=== PATIENT | male | born 1960 | race Caucasian/White ===

== ENCOUNTER 2016-09-26 21:56 | Emergency (ER) | payer SELFPAY ==
[2016-09-26] MEDS ORDERED: BENADRYL INJ 50 MG VIAL ONE (22:05)
[2016-09-26] MEDS ORDERED: SOLU-Medrol 125 MG VIAL ONE ×2 (22:09→23:03)
[2016-09-26] MEDS ORDERED: BENADRYL INJ 50 MG VIAL IV ONE (22:10)
[2016-09-26] MEDS ORDERED: SOLU-Medrol 125 MG VIAL IVP ONE ×2 (22:10→22:55)
[2016-09-26] MEDS ORDERED: ADRENALINE CHL INJ IM ONE ×2 (22:10→22:55)
[2016-09-26] MEDS ORDERED: ADRENALINE CHL INJ ONE ×2 (22:10→22:55)
--- NOTE | 2016-09-26 22:12 | DR.GENAD ---
HPI - HPI Comment HPI Comment: GETTING WORSE, CAME TO ED. NO MED TAKING BEFORE COMING. - Complaint/Symptoms Chief Complaint Doctors Comments: ALLERGIC REACTION TO BEE STING. GENERALIZE PRURITUS, THROAT DISCOMFORT AND CHEST TIGHTNESS WITH RASH. NOTED AT 20:30 PM TONIGHT. - Nurses notes reviewed Nurses Notes Review: Yes - Source History Provided: Patient - Mode of Arrival Mode of Arrival: Ambulatory - Timing Came on: Suddenly - Duration Duration: Constant Duration: Hours - Severity Severity: Moderate PMH - PMH Past Medical History: Arthritis Past Surgical History: Yes Surgical History: Ortho Surgery - Family History Family Medical History: Diabetes Mellitus, Cancer, [place], Coronary Artery Disease, Heart Failure, Sudden Cardiac , Hypertension - Social History Do you use any recreational Drugs:: No ROS - Review of Systems Constitutional: No Symptoms Reported Eyes: No Symptoms Reported ENTM: Throat Pain. negative: Ear Pain, Nose Discharge, Nose Congestion Respiratoy: Non-Productive Cough, Short of Breath, Wheezing. negative: Hemoptysis Cardiovascular: Chest Pain. negative: Edema, Palpitations, Syncope Gastrointestinal/Abdominal: Nausea. negative: Abdominal Pain Genitourinary: No Symptoms Reported Neurological: No Symptoms Reported Musculoskeletal: Muscle Pain Integumentary: No Symptoms Reported Hematologic/Lymphatic: No Symptoms Reported Endocrine: No Symptoms Reported All Other Systems: Reviewed and Negative PE - Vital Signs Vitals: Temperature 98.2 F Pulse Rate [Apical] 96 Pulse Rate 105 Respiratory Rate 20 Blood Pressure [Right Arm] 107/62 Blood Pressure 85/61 O2 Sat by Pulse Oximetry 99 - General Limitations: No Limitations General Appearance: Alert - Head Head Exam: Normal Inspection - Eyes Eye exam: Normal Appearance - ENT ENT Exam: Normal External Ear Exam External Ear Exam: Normal External Inspection TM/Canal Exam: Bilateral Normal Nose Exam: Normal Nose Exam Mouth Exam: Normal Inspection Throat Exam: Normal Inspection - Neck Neck Exam: Normal Inspection - Chest Chest Inspection: Symmetric Chest Wall Rise - Respiratory Respiratory Exam: Normal Lung Sounds Bilat Respiratory Exam: Bilateral Clear to Auscultation - Cardiovascular Cardiovascular Exam: Regular Rate, Normal Rhythm, Normal Heart Sounds - Abdominal Exam Abdominal Exam: Normal Bowel Sounds, Soft, Hyperactive Bowel Sounds. negative: Tenderness - Extremities Extremities Exam: Normal Inspection - Back Back Exam: Normal Inspection - Neurologic Neurological Exam: Alert, Oriented X3 - Psychiatric Psychiatric Exam: Normal Affect, Normal Mood - Skin Skin Exam: Normal Color MDM - Additional Information Additional Information Obtained From: Family - Differential Diagnosis Differential Diagnosis: ALLEGIC REACTION, PRURITUS, BEE STING Course - Treatment Treatment: SEE ORDERS. MEDS IN ED. - Reevaluation 1st: Improved - Education/Counseling Education/Counseling: Patient, Family, Education Educated On: Treatment, Diagnosis, Needs for Follow Up - Diagnosis Discharge Problem: Allergic reaction to bee sting Anaphylactoid reaction Qualifiers: Encounter type: initial encounter Qualified Code(s): T78.2XXA - Anaphylactic shock, unspecified, initial encounter - Discharge Plan Disposition: HOME, SELF-CARE Condition: Stable Prescriptions: Hydroxyzine Pamoate [Vistaril] 25 mg PO QID #20 cap Methylprednisolone Dosepak 4Mg [MEDROL DOSEPAK (4 mg tab x 21)] 1 thalia PO ONCE # 1 thalia - Follow ups/Referrals Follow ups/Referrals: NFD,None [Primary Care Provider] - 2 days JUAN ROBERTO [STAFF PHYSICIAN] - 2 days - Instructions Instructions: Angioedema, [id number], Allergies, [id number], Anaphylactic Reaction, [id number], Insect Bite, Bee, Wasp, or Hornet Sting Additional Instructions: RETURN TO ED IF WORSE.
[2016-09-26] MEDS ORDERED: NS 1000 ML 1,000 ML IV ONE (22:13)
[2016-09-26] MEDS ORDERED: NS 1000 ML 1,000 ML ONE (22:15)
[2016-09-26 22:20] VITALS: BMI 22.4
[2016-09-26] MEDS ORDERED: PEPCID 20 MG IV PREMIX* 20 MG/50 ML BAG IV ONE ×2 (22:55)
[2016-09-26 23:50] VITALS: BP 107/62
== END 2016-09-27 00:50 | disposition home or self-care (01) ==
LOC: ER 22:02
DX: T78.2XXA Anaphylactic shock, unspecified, initial encounter (principal); W57.XXXA Bitten or stung by nonvenomous insect and other nonvenomous arthropods, initial encounter
CPT/HCPCS: 96365; 96372; 96374; 96375; 99283; 99284; A4222; S0028; J0170; J1200; J2930

== ENCOUNTER 2016-11-03 22:33 | Emergency (ER) | payer SELFPAY ==
[2016-11-03 22:37] VITALS: BP 141/88; BMI 22.0
--- NOTE | 2016-11-03 23:37 | RAD ---
EXAM: Right wrist x-ray INDICATION: Pain COMPARISION: No priors for comparison TECHNIQUE: AP, lateral, and oblique, three views FINDINGS: No acute fracture or dislocation. The joint spaces are preserved. The soft tissues are normal. No ra diopaque foreign body. IMPRESSION: Normal right wrist x-ray exam Reported By:
[2016-11-04] MEDS ORDERED: TORADOL 60 MG VIAL IM ONE (00:02)
[2016-11-04] MEDS ORDERED: TORADOL 30 MG VIAL ONE (00:06)
--- NOTE | 2016-11-04 00:09 | DR.EXTPAIN ---
HPI - Time seen Time seen: 00:04 - PCP Primary Care Physician: nfd - Complaint/Symptoms Chief Complaint Doctor Comments: Patient states hurt his right wrist a week ago when he was tring to fix a catch and it slipped and he hurt his right wrist and yesterday he was trying to take an air conditioning unit out of a window and it go stuck and he tried to knock it out using his right hand and hurt his wrist again. States he can barely move his fingers due to the pain. He has been wearing a splint on the right writst but it has not been helping with the pain tonight. states the pain is 9 of 10 worst when he moves his wrist. He denies chest pain or head trauma. states he is a patient of Dr Vazquez. Chief Complaint:: "i hurt my right wrist last saturday a week ago, yesterday i reinjured it. it hurts, and i need something." - Nurses notes reviewed Nurses Notes Review: Yes - Source History Provided: Patient - Mode of arrival Mode of Arrival: Ambulatory - Timing Onset of Chief Complaint: 10/26/16 - Context History of: None - Associated signs and symptoms Associated Signs and Symptoms: Pain, Swelling (right wrist pain ) PMH - PMH Past Medical History: Yes Past Medical History: Arthritis, Hypertension Past Surgical History: Yes Surgical History: Ortho Surgery - Family History History of Family Medical Conditions: Yes Family Medical History: Diabetes Mellitus, Cancer, [place], Coronary Artery Disease, Heart Failure, Sudden Cardiac , Hypertension - Social History Type of Tobacco Use: Cigarettes Alcohol Use: Occasionally Do you use any recreational Drugs:: No Lives With: Spouse Lives Where: Home - infectious screening Have you traveled outside the country in the last 6 months?: No Isolation: Standard ROS - Review of Systems Constitutional: No Symptoms Reported. negative: See HPI, Chills, Diaphoresis, Fever, Malaise, Weakness, Irritable, Fatigue, Loss of Appetite, Other Eyes: No Symptoms Reported ENTM: No Symptoms Reported. negative: See HPI, Ear Pain, Ear Discharge, Pulling on Ears, Hearing Loss, Nose Pain, Nose Discharge, Epistaxis, Nose Congestion, Mouth Pain, Mouth Swelling, Loose Teeth, Drooling, Throat Pain, Throat Swelling, Ear Foreign Body Respiratoy: No Symptoms Reported. negative: See HPI, Productive Cough, Non- Productive Cough, Moist Cough, Dry Cough, Hacking Cough, Barking Cough, Brassy Cough, Orthopnea, Short of Breath, Stridor, Wheezing, Hemoptysis, Other Cardiovascular: No Symptoms Reported Gastrointestinal/Abdominal: No Symptoms Reported Genitourinary: No Symptoms Reported. negative: See HPI, Discharge, Dysuria, Frequency, Hematuria, Pain, Bleeding, Other Neurological: No Symptoms Reported Musculoskeletal: No Symptoms Reported, Right, Hand Integumentary: No Symptoms Reported. negative: See HPI, Change in Color, Change in Hair/Nails, Dryness, Lesions, Lumps, Rash, Itching, Wound, Bruises, Juandice, Other Hematologic/Lymphatic: No Symptoms Reported Endocrine: No Symptoms Reported. negative: See HPI, Excessive Sweating, Flushing, Intolerance to Cold, Intolerance to Heat, Increased Hunger, Increased Thirst, Increased Urine, Unexplained Weight Gain, Unexplained Weight Loss, Failure to Thrive, Decreased Appetite, Other Psychiatric: No Symptoms Reported PE - Vital Signs Vitals: Temperature 97.8 F Pulse Rate 90 Respiratory Rate 18 Blood Pressure [Right Arm] 107/62 Blood Pressure 141/88 O2 Sat by Pulse Oximetry 95 - General Limitations: No Limitations General Appearance: Alert, In Distress (moderate) - Head Head Exam: Normal Inspection, Atraumatic, Normocephalic - Eyes Eye exam: Normal Appearance, PERRL, EOMI. negative: Scleral Icterus, Conjunctival Injection, Nystagmus, Miosis, Mydrasis, Periorbital Swelling, Periorbital Tenderness, Other - ENT ENT Exam: Normal Exam, Normal Oropharynx, Normal External Ear Exam, Mucous Membranes Moist, TM's Normal Bilaterally - Neck Neck Exam: Normal Inspection, Full ROM, Trachea Midline. negative: Tenderness, Meningismus, Lymphadenopathy, Thyromegaly, Other - Chest Chest Inspection: Normal Inspection, Symmetric Chest Wall Rise - Respiratory Respiratory Exam: Normal Lung Sounds Bilat Respiratory Exam: Bilateral Clear to Auscultation - Cardiovascular Cardiovascular Exam: Regular Rate, Normal Rhythm, Normal Heart Sounds - Abdominal Exam Abdominal Exam: Normal Inspection, Normal Bowel Sounds, Soft Abdominal Tenderness: negative: RUQ, RLQ, LUQ, LLQ, Epigastrium, Suprapubic, Diffuse, Mild, Moderate, Severe, Other - Extremities Extremities Exam: Normal Inspection, Full ROM, Tenderness (right wrist tender with slight swelling no erythema; pulse intact; good range of motion of all fingers), Normal Capillary Refill. negative: Edema, Joint Swelling, Calf Tenderness, Other - Upper Extremities Shoulder Exam: Normal Inspection, Full ROM Arm Exam: Normal Inspection, Full ROM. negative: Tenderness, Swelling, Abrasion , Laceration, Ecchymosis, Deformity, Crepitus, Erythema, Other Elbow Exam: Normal Inspection, Full ROM Forearm Exam: Normal Inspection, Full ROM Hand Exam: Normal Inspection, Full ROM, Tenderness (right wrist with swelling), Swelling Neuromotor Exam: Normal Exam, Wrist Extension (normal) Neurosensory Exam: Normal Exam Upper Ext. Vascular Exam: Capillary Refill, Radial Pulse (normal) - Lower Extremities Hip/Pelvis Exam: Normal Inspection, Full ROM Upper Leg Exam: Normal Inspection, Full ROM Knee Exam: Normal Inspection, Full ROM Ankle Exam: Normal Inspection, Full ROM Foot/Toe Exam: Normal Inspection, Full ROM Neurovascular/Tendon Exam: Normal Capillary Refill Gait Exam: Not Tested/Not Observed - Back Back Exam: Normal Inspection, Full ROM - Neurological Neurological Exam: Alert, Oriented X3, CN II-XII Intact, Reflexes Normal. negative: Normal Gait (gait not tested) - Psychiatric Psychiatric Exam: Normal Affect, Normal Mood - Skin Skin Exam: Warm, Dry, Intact, Normal Color Distribution: negative: Generalized, Involves Palms/Soles, Head, Face, Neck, Thorax, Chest, Back, Abdomen, Genitals, LUE, LLE, RUE, RLE, Other Description: negative: Size, Tenderness, Erythematous, Swelling, Macular, Papular, Vesicular, Blisters, Cofluent, Bullous, Petechial, Purpuric, Urticarial , Crusting, Discharge, Fluctuant, Indurated, Other ROR - Labs Reviewed Laboratory Results Reviewed?: Yes (all x-ray results reviewed and discussed with patient) - XRAY XRAY Interpreted by: Radiologist (right wrist: Normal right wrist x-ray exam), Self (right wrist: no fracture or dislocation noted) - Diagnosis Discharge Problem: Right wrist pain, Contusion of right wrist Strain of wrist, right Qualifiers: Encounter type: initial encounter Qualified Code(s): S66.911A - Strain of unspecified muscle, fascia and tendon at wrist and hand level, right hand, initial encounter - Discharge Plan Disposition: 01 HOME, SELF-CARE Condition: Stable Prescriptions: Acetaminophen/Codeine Tab [TYLENOL w/CODEINE #3 (300 MG/30 MG) *] 1 tab PO Q4- 6H PRN #28 tab PRN Reason: Pain Naproxen [NAPROSYN 500 MG *] 500 mg PO BID PRN #24 tab PRN Reason: Pain/Inflammation - Follow ups/Referrals Follow ups/Referrals: NFD,None [Primary Care Provider] - 3 days AVINASH FREY [STAFF PHYSICIAN] - 3 days - Instructions Instructions: Wrist Pain, Tendinitis, Hand Contusion
== END 2016-11-04 00:32 | disposition home or self-care (01) ==
LOC: ER 22:33
DX: S66.911A Strain of unspecified muscle, fascia and tendon at wrist and hand level, right hand, initial encounter (principal); S60.211A Contusion of right wrist, initial encounter; M25.531 Pain in right wrist; Y33.XXXA Other specified events, undetermined intent, initial encounter; Y92.9 Unspecified place or not applicable
CPT/HCPCS: 73100; 96372; 99282; 99283; J1885